=== PATIENT | female | born 1965 | race Caucasian/White ===

== ENCOUNTER 2019-02-20 10:24 | Emergency (ER) | payer BC ==
[2019-02-20 10:35] VITALS: BP 101/67
--- NOTE | 2019-02-20 11:38 | UC ---
Complaint Female HPI - HPI Summary HPI Summary: Patient states she had some brown spotting earlier in the week however that resolved. She states she is perimenopausal so she can have spotting or menstrual period any time. Her last one was 2 weeks ago. She has no abnormal vaginal discharge today. She states during the night she awakened to use the bathroom and then has had to urinate frequently which is not normal for her. She denies any fever or chills but she does have some burning at the end of urination. - History Of Current Complaint Chief Complaint: UCGU Stated Complaint: URINE ISSUES Time Seen by Provider: 02/20/19 11:04 Hx Obtained From: Patient ?: No Onset/Duration: Gradual Onset Timing: Intermittent Severity Initially: Mild Severity Currently: Mild Pain Intensity: 5 Character: Burning Aggravating Factor(s): Urination Alleviating Factor(s): Nothing Associated Signs And Symptoms: Positive: Negative - Allergies/Home Medications Allergies/Adverse Reactions: Allergies Allergy/AdvReac Type Severity Reaction Status Date / Time Penicillins Allergy unk Verified 02/20/19 10:30 Sulfa (Sulfonamide Allergy unk Verified 02/20/19 10:30 Antibiotics) PMH/Surg Hx/FS Hx/Imm Hx Previously Healthy: Yes - Surgical History Surgical History: Yes Surgery Procedure, Year, and Place: Ab with D&C; wisdom teeth - Family History Known Family History: Positive: Non-Contributory - Social History Alcohol Use: Weekly Substance Use Type: None Smoking Status (MU): Former Smoker When Did the Patient Quit Smoking/Using Tobacco: 12 yrs ago Review of Systems All Other Systems Reviewed And Are Negative: Yes Genitourinary: Positive: Dysuria, Frequency. Negative: Vaginal/Penile Burning, Vaginal/Penile Itching, Vaginal/Penile Discharge, Vaginal/Penile Pain, Vaginal/ Penile Tenderness Is Patient Immunocompromised?: No Physical Exam Triage Information Reviewed: Yes Appearance: Well-Appearing, No Pain Distress, Well-Nourished Vital Signs: Initial Vital Signs Temp 98.2 F 02/20/19 10:31 Pulse 64 02/20/19 10:31 Resp 16 02/20/19 10:31 BP 101/67 02/20/19 10:31 Pulse Ox 99 02/20/19 10:31 Vital Signs Reviewed: Yes Respiratory: Positive: Lungs clear, Normal breath sounds, No respiratory distress, No accessory muscle use Cardiovascular: Positive: RRR, No Murmur, Pulses Normal, Brisk Capillary Refill Abdomen Description: Positive: Nontender, No Organomegaly, Soft Bowel Sounds: Positive: Present Complaint Female Dx - Course Course Of Treatment: Patient is comfortable here. I'm going to treat her with Macrobid twice a day for 7 days and Pyridium. She states increase fluids and follow-up with her primary care provider if no improvement. - Differential Dx/Diagnosis Provider Diagnosis: UTI (urinary tract infection) Discharge - Sign-Out/Discharge Documenting (check all that apply): Patient Departure All imaging exams completed and their final reports reviewed: No Studies - Discharge Plan Condition: Fair Disposition: HOME Prescriptions: Nitrofurantoin Monohyd/M-Cryst [Macrobid 100 mg Capsule] 100 mg PO BID 7 Days # 14 cap Phenazopyridine TAB* [Pyridium 100 mg TAB*] 100 mg PO TID 2 Days #6 tab Patient Education Materials: Urinary Tract Infection in Women (DC) Referrals: Samantha Gipson MD [Primary Care Provider] - Additional Instructions: Increase fluids, if you develop fever, chills, back pain and unable keep the medication down then you're to go to the emergency room for follow-up. Follow- up with your primary care provider in 2 or 3 days if no improvement. The Pyridium will turn body fluids orange and her urine orange so change her contacts after the treatment. - Billing Disposition and Condition Condition: FAIR Disposition: Home
--- NOTE | 2019-02-22 15:13 | UC ---
- Progress Note Progress Note: Urine culture with kelbsiella and e coli Macrobid with indeterminate activity against Kelbsiella. Given multiple pathogens and indeterminate sens against klebsiella --- recommend switching to cipro which is sens and she is not allergic to. Cipro 500mg BID for 5 days sent Course/Dx - Diagnoses Provider Diagnoses: UTI (urinary tract infection) Discharge - Sign-Out/Discharge Documenting (check all that apply): Post-Discharge Follow Up All imaging exams completed and their final reports reviewed: No Studies - Discharge Plan Condition: Fair Disposition: HOME Prescriptions: Ciprofloxacin TAB* [Cipro 500 MG TAB*] 500 mg PO BID #10 tab Nitrofurantoin Monohyd/M-Cryst [Macrobid 100 mg Capsule] 100 mg PO BID 7 Days # 14 cap Phenazopyridine TAB* [Pyridium 100 mg TAB*] 100 mg PO TID 2 Days #6 tab Patient Education Materials: Urinary Tract Infection in Women (DC) Referrals: Samantha Gipson MD [Primary Care Provider] - Additional Instructions: Increase fluids, if you develop fever, chills, back pain and unable keep the medication down then you're to go to the emergency room for follow-up. Follow- up with your primary care provider in 2 or 3 days if no improvement. The Pyridium will turn body fluids orange and her urine orange so change her contacts after the treatment. - Billing Disposition and Condition Condition: FAIR Disposition: Home
--- NOTE | 2019-02-23 16:21 | UC ---
- Progress Note Progress Note: + klebsiella - indterminate to Macrobid + E. coli + sensitive call pt - if improving, finish course If not improving, will call different RX for pt IF need to change abx, confirm PCN allergy reaction please Course/Dx - Diagnoses Provider Diagnoses: UTI (urinary tract infection) Discharge - Sign-Out/Discharge Documenting (check all that apply): Post-Discharge Follow Up All imaging exams completed and their final reports reviewed: No Studies - Discharge Plan Condition: Fair Disposition: HOME Prescriptions: Ciprofloxacin TAB* [Cipro 500 MG TAB*] 500 mg PO BID #10 tab Nitrofurantoin Monohyd/M-Cryst [Macrobid 100 mg Capsule] 100 mg PO BID 7 Days # 14 cap Phenazopyridine TAB* [Pyridium 100 mg TAB*] 100 mg PO TID 2 Days #6 tab Patient Education Materials: Urinary Tract Infection in Women (DC) Referrals: Samantha Gipson MD [Primary Care Provider] - Additional Instructions: Increase fluids, if you develop fever, chills, back pain and unable keep the medication down then you're to go to the emergency room for follow-up. Follow- up with your primary care provider in 2 or 3 days if no improvement. The Pyridium will turn body fluids orange and her urine orange so change her contacts after the treatment. - Billing Disposition and Condition Condition: FAIR Disposition: Home
== END 2019-02-20 11:56 | disposition home or self-care (01) ==
LOC: UCEAST 10:24
DX: N39.0 Urinary tract infection, site not specified (principal); Z88.0 Allergy status to penicillin; Z88.2 Allergy status to sulfonamides; Z87.891 Personal history of nicotine dependence
CPT/HCPCS: 81003; 87077; 87086; 87186; 99212; G0463